=== PATIENT | female | born 1950 | race Caucasian/White ===

== ENCOUNTER 2018-10-19 10:05 | Day surgery (SDC) | payer MEDICARE, BC ==
[~2018-10-19 10:05] MED LIST: LIDOCAINE HCL 1% MPF 30 SOL ONE; PROPOFOL 500 MG/50 ML EMU IV ONE
[2018-10-19 12:28] VITALS: TEMP 96.9
[2018-10-19 12:49] VITALS: BP 127/89; PULSE 68; RESP 12; O2SAT 99
== END 2018-10-19 13:14 | disposition home or self-care (01) | DRG 951 ==
LOC: SURG 10:05
PROVIDERS: ATTEND Surgery
DX: Z12.11 Encounter for screening for malignant neoplasm of colon (principal); K57.32 Diverticulitis of large intestine without perforation or abscess without bleeding
CPT/HCPCS: J2001; J2704